=== PATIENT | male | born 1965 | race Caucasian/White ===

== ENCOUNTER 2017-08-12 21:57 | Emergency (ER) | payer MEDICAID ==
[2017-08-12 22:53] LABS: URINE BLOOD (Dip) POC Trace-lysed (NEGATIVE); URINE GLUCOSE (Dip) POC Negative (NEGATIVE); URINE KETONES (Dip) POC Negative (NEGATIVE); URINE LEUKOCYTE EST (Dip) POC Negative (NEGATIVE); URINE NITRITE (Dip) POC Negative (NEGATIVE); URINE TOTAL PROTEIN POC Negative (NEGATIVE)
[2017-08-12 22:54] LABS: ADD MAN DIFF? NO
[2017-08-12 22:56] LABS: WHITE BLOOD COUNT 9.5 10^3/ul (4.8-10.8)
[2017-08-12 22:56] LABS: BASOPHIL # 0.1 10^3/ul (0.0-0.1); BASOPHILS % 0.6 % (0.0-2.0); EOSINOPHILS # 0.4 10^3/ul (0.0-0.5); EOSINOPHILS % 4.1 % (0.0-7.0); HEMATOCRIT 47.3 % (42.0-52.0); HEMOGLOBIN 16.2 g/dl (14.0-18.0); LYMPHOCYTES # 1.4 10^3/ul (0.8-2.9); LYMPHOCYTES % 14.5 % (15.0-51.0); MEAN CORPUSCULAR HEMOGLOBIN 30.2 pg (29.0-33.0); MEAN CORPUSCULAR HGB CONC 34.2 g/dl (32.0-37.0); MEAN CORPUSCULAR VOLUME 88.1 fl (82.0-101.0); MEAN PLATELET VOLUME 10.8 fl (7.4-10.4); MONOCYTE # 0.8 10^3/ul (0.3-0.9); MONOCYTES % 8.6 % (0.0-11.0); NEUTROPHIL # 6.8 10^3/ul (1.6-7.5); NEUTROPHILS % 71.9 % (39.0-77.0); PLATELET COUNT 197 10^3/UL (140-415); RED BLOOD COUNT 5.37 10^6/ul (4.70-6.10); RED CELL DISTRIBUTION WIDTH 12.8 % (11.5-14.5)
[2017-08-12] MEDS: LABETALOL HCL 20MG INJ IV (23:08)
[2017-08-12 23:14] LABS: ANION GAP 14 (8-16); BLOOD UREA NITROGEN 20 mg/dl (7-20); CALCIUM 9.1 mg/dl (8.4-10.2); CARBON DIOXIDE 25 mmol/L (21-31); CHLORIDE 107 mmol/L (97-110); CREATINE KINASE 210 IU/L (23-200); CREATININE 0.88 mg/dl (0.61-1.24); GLUCOSE 136 mg/dl (70-220); POTASSIUM 3.8 mmol/L (3.5-5.1); SODIUM 142 mmol/L (135-144)
[2017-08-13] MEDS: NIFEdipine (XL) 30 MG TAB PO (00:30)
[2017-08-13] MEDS: LABETALOL HCL 20MG INJ IV (00:31)
== END 2017-08-13 01:17 | disposition home or self-care (01) ==
LOC: E/R 08-13 01:17
DX: I16.0 Hypertensive urgency (principal)
CPT/HCPCS: 36415; 71045; 80048; 81003; 82550; 82962; 85025; 93005; 96374; 96376; 99285-25